=== PATIENT | male | born 1985 | race Two or more races ===

== ENCOUNTER 2022-06-19 23:33 | Emergency (ER) | payer OTHER ==
[2022-06-19] MEDS ORDERED: GLUCAGON 1 MG KIT ONE (23:40)
[2022-06-20 00:03] VITALS: BMI 22.6
[2022-06-20] MEDS ORDERED: NOREPINEPHRINE BITARTRATE 4 MG/4 ML ML IV ONE ×2 (01:24→01:26)
[2022-06-20] MEDS ORDERED: NOREPINEPHRINE D5W PREMIX 16,000 MCG/500 ML BAG IVPB SCH (01:30)
[2022-06-20 01:34] LABS: HEMATOCRIT 23.6 % (35.4-49); HEMOGLOBIN 7.9 GM/dL (11.7-16.9); MCH 28.1 pg (25.7-33.7); MCHC 33.5 g/dl (32.0-35.9); MEAN CELL VOLUME 83.7 fl (80-96); MEAN PLT VOLUME 7.6 fl (7.5-11.1); PLATELET COUNT 364 10^3/uL (134-434); RBC 2.82 M/mm3 (4.00-5.60); VENOUS BASE EXCESS -0.8 mmol/L (-2-2); VENOUS O2 SATURATION 78.3 % (70-80); VENOUS PCO2 45.3 mmHg (38-52); VENOUS PH 7.355 (7.310-7.410); WHITE BLOOD COUNT 21.2 K/mm3 (4.0-10.0)
[2022-06-20 01:59] LABS: BLOOD UREA NITROGEN 12.6 mg/dL (7-18); CALCIUM 8.3 mg/dL (8.5-10.1)
[2022-06-20 02:00] LABS: ALBUMIN 2.8 g/dl (3.4-5.0)
[2022-06-20 02:01] LABS: INR 1.4 (0.83-1.09); PROTHROMBIN TIME (PATIENT) 16.1 SEC (9.7-13.0)
[2022-06-20 02:02] LABS: CREATININE 4.3 mg/dL (0.55-1.3)
[2022-06-20 02:04] LABS: ACTIVATED PTT 35.2 SECONDS (25.2-36.5); BILIRUBIN,TOTAL 1.2 mg/dL (0.2-1); TOT PROT 7.3 g/dl (6.4-8.2)
[2022-06-20] MEDS ORDERED: DAPTOMYCIN 500 MG in SODIUM CHLORIDE 50 ML IVPB ONE (02:24)
[2022-06-20] MEDS ORDERED: PIPERACILLIN/TAZOB 2.25 GM 2.25 GM in DEXTROSE 5%-WATER - 50 ML IVPB ONE (02:24)
[2022-06-20] MEDS ORDERED: SODIUM CHLORIDE 0.9% 500 ML INFUS.BAG IV ONE (02:26)
[2022-06-20] MEDS ORDERED: PIPERACILLIN/TAZOB 2.25 GM 2.25 GM/50 ML BAG IVPB ONE (02:35)
[2022-06-20] MEDS ORDERED: TIGECYCLINE 100 MG in DEXTROSE 5%-WATER - 100 ML IVPB ONE (02:38)
[2022-06-20] MEDS ORDERED: GLUCAGON 1 MG KIT IM ONE (03:28)
[2022-06-20 04:42] LABS: MAGNESIUM 1.4 mg/dL (1.8-2.4)
[2022-06-20 04:59] VITALS: TEMP 99
[2022-06-20 06:04] LABS: ANISOCYTOSIS 1+; MACROCYTOSIS 1+; OVALOCYTE 1+; ROULEAU 1+
[2022-06-20 09:43] VITALS: BP 133/77
[2022-06-20 09:58] VITALS: PULSE 105; RESP 23
== END 2022-06-20 10:25 | disposition short-term general hospital (02) ==
LOC: JER 23:33
PROC: 3E023GC Introduction of Other Therapeutic Substance into Muscle, Percutaneous Approach (ICD-10-PCS; principal; 2022-06-19)
PROC: 3E03329 Introduction of Other Anti-infective into Peripheral Vein, Percutaneous Approach (ICD-10-PCS; 2022-06-19)
PROC: 3E033GC Introduction of Other Therapeutic Substance into Peripheral Vein, Percutaneous Approach (ICD-10-PCS; 2022-06-19)
DX: D57.219 Sickle-cell/Hb-C disease with crisis, unspecified (principal); R65.20 Severe sepsis without septic shock
CPT/HCPCS: 36415; 71045-TC-FY; 80053; 82550; 82553; 82803; 82962; 83605; 83735; 84484; 85025; 85610; 85730; 86850; 86900; 86901; 93005; 93010; 99285-25; C9803-CS; J3243; U0003; U0005